=== PATIENT | female | born 1980 | race Caucasian/White ===

== ENCOUNTER → 2018-03-04 09:27 | Outpatient (CLI) | payer OTHER, MEDICAID, SELFPAY | PROVIDERS: Visit Provider Family Medicine | DX: F45.8 Other somatoform disorders (principal); R59.0 Localized enlarged lymph nodes | CPT/HCPCS: 76536 ==

== ENCOUNTER → 2018-03-12 08:19 | Outpatient (CLI) | payer OTHER, MEDICAID, SELFPAY ==
[2018-03-12 11:57] LABS: Absolute Lymphocyte Count 1.65 X10^3/ul (0.83-4.51); Absolute Neutrophil Count 3.4 X10^3/uL (2.0-7.7); Basophil# 0.03 X10^3/uL; Basophil% 0.5 % (0-1); Eosinophil# 0.11 X10^3/uL; Hematocrit 42.6 % (37-47); Hemoglobin 14.2 g/dl (12.0-15.0); Lymphocyte # 1.65 X10^3/ul (4.0); Lymphocyte % 29.3 % (19-41); Mean Corp Hgb Conc 33.3 g/gl (32-36); Mean Corpuscular Hgb 30.9 pg (27.0-32.0); Mean Corpuscular Volume 92.8 fL (81-99); Mean Platelet Vol. 10.6 fl (6.2-12.0); Monocyte% 7.1 % (0-10); Neutrophil # 3.43 X10^3/uL (2.7-7.7); Neutrophil % 60.9 % (47-70); Platelet Count 256 K/mm3 (150-450); RBC Distribution Width CV 12.3 % (11.6-14.6); RBC Distribution Width SD 41.6 fl (35.1-43.9); Red Blood Count 4.59 M/mm3 (4.2-5.4); White Blood Count 5.6 K/mm3 (4.4-11.0)
[2018-03-12 11:59] LABS: POSITIVE COUNT NO; POSITIVE DIFFERENTIAL NO; POSITIVE MORPHOLOGY NO
[2018-03-12 12:20] LABS: Vitamin B12 661 pg/mL (211-911); Vitamin D,25 Hydroxy 25.4 ng/mL (29.95-100.01)
[2018-03-12 12:31] LABS: ALB/GLOB Ratio 1.2 RATIO (0.9-2.4); AST(SGOT) 17 U/L (15-37); Alanine Aminotransfer ALT/SGPT 26 U/L (13-56); Albumin, Serum 3.8 g/dL (3.2-5.0); Alkaline Phosphatase 32 U/L (45-117); Anion Gap 11 (5-15); BUN 18 mg/dL (7-18); BUN/Creat Ratio 20.4 RATIO (10-20); Calcium,Total 8.6 mg/dL (8.5-10.1); Chloride 108 mmol/L (98-107); Creatinine, Serum 0.88 mg/dL (0.55-1.02); EST Glomerular Filtration Rate 77 mL/min (>60); Est Glom Filt Rate - Afr Amer 93 mL/min (>60); Globulin 3.3 g/dL (2.2-4.2); Glucose 81 mg/dL (74-106); Potassium 3.8 mmol/L (3.5-5.1); Protein, Total 7.1 g/dL (6.4-8.2); Sodium Level 142 mmol/L (136-145); T4 Free Direct 1.01 ng/dL (0.76-1.46); Thyroid Stim Hormone (TSH) 2.38 uIU/mL (0.358-3.74)
[2018-03-13 20:08] LABS: Endomysial Antibody IgA Negative (Negative)
[2018-03-14 08:53] LABS: ANTINUCLEAR ANTIBODIES DIRECT Negative (Negative)
[2018-03-14 08:56] LABS: Immunoglobulin A 231 mg/dL (87-352); t-Transglutaminase IgA <2 U/mL (0-3)
== END ==
LOC: LAB.FUTURE 09-15 00:55 → BFHLAB 09-02 15:31
PROVIDERS: Family Provider Family Medicine; PCP Family Medicine; Visit Provider Family Medicine
DX: I73.00 Raynaud's syndrome without gangrene (principal); G47.10 Hypersomnia, unspecified; R53.82 Chronic fatigue, unspecified; R21 Rash and other nonspecific skin eruption
CPT/HCPCS: 36415; 80053; 82306; 82533; 82607; 82784; 83516; 84439; 84443; 85025; 86038; 86225; 86235; 86255

== ENCOUNTER 2019-02-12 06:11 | Emergency (ER) | payer OTHER, MEDICAID, SELFPAY ==
[2019-02-12 06:11] VITALS: BP 121/97; PULSE 72; RESP 18; TEMP 36.6; O2SAT 96; BMI 21.9
--- NOTE | 2019-02-12 06:25 | ED.DCSUM_ITS ---
History of Present Illness Chief Complaint: Cold Sx Informant: Patient Onset: Days - 2 Narrative: Sinus congestion past 2 days. No fevers. No cough. No sore throat. No vomiting or diarrhea. Tolerating oral fluids. Uses daily [id number] nasal sprays once a day. No history of hypertension. No headaches. No visual changes. Prior similar symptoms: Yes Past Medical History - Allergies and Home Meds Allergies/Adverse Reactions: Allergies Sulfa (Sulfonamide Antibiotics) Allergy (Verified 09/02/15 06:39) Hives Primary Care Physician: Angel Engel DO [Primary Care Provider] - 3-5 Days if not improving Smoking Status: Never smoker Review of Systems All systems negative except as indicated General: Denies: Chills, Fever, Sweats Eyes: Denies: Visual changes - bilaterally, Diplopia ENT: Denies: Left ear pain, Right ear pain, Rhinorrhea, Sore throat Cardiovascular: Denies: Chest pain, Palpitations Respiratory: Denies: Dyspnea, Cough, Dyspnea on exertion Gastrointestinal: Denies: Abdominal pain, Nausea, Vomiting, Diarrhea, Melena, Hematochezia Genitourinary: Denies: Dysuria, Hematuria, Frequency Musculoskeletal: Denies: Back pain, Extremity Pain Skin: Denies: Rash, Wounds Neurological: Denies: Headache, Weakness, Numbness Physical Exam Vital Signs/Narrative: Vital Signs Temp Pulse Resp BP Pulse Ox 02/12/19 06:11 97.9 F 72 18 121/97 H 96 Inital Vital Signs reviewed: Yes General: Well nourished, Well developed, No Acute Distress Head: Normocephalic, Atraumatic, - - Tender palpation bilateral frontal sinus, left maxillary. Swollen left turbinate. No active drainage. Mild posterior pharyngeal erythema. Minimal sized tonsils. Airway patent. No exudates. Uvula midline. No trismus. Eyes: Perrl, EOMI ENT: Moist mucous membranes, No rhinorrhea Neck: Supple, Nontender Cardiovascular: Regular rate, Regular rhythm, No murmurs Respiratory: No distress, CTA bilaterally, Chest nontender Abdomen: Soft, Nontender, Nondistended, Normal bowel sounds Back: Nontender, Normal Inspection Extremities: Nontender, No edema Skin: Normal color, No rash Neurological: Alert, Oriented x3, Cranial nerves II-XII grossly intact, Normal Strength, Normal Sensation Psychological: Normal affect, Normal Mood Diagnostic/Tx/Re-eval - Medical Decision Making Patient nontoxic, vital signs stable. Centor criteria 1 out of 4. Discussed viral pharyngitis. Discussed viral sinusitis at this time. Symptomatic treatment with steroids. Written for Afrin nasal spray to use every 6 hours for 3 days. Patient to continue oral hydration. Follow-up with PCP for re evaluation. All questions were answered. ED Disposition - Plan for ED Patient: Disposition: Home or Assisted Living Diagnosis: Sinusitis, Pharyngitis Instructions: Self-Care for Sinusitis, PHARYNGITIS, Viral Prescriptions: Oxymetazoline HCl [Afrin] 1 spray NS Q6H #1 bottle Prescription Printed Referrals: Angel Engel DO [Primary Care Provider] - 3-5 Days if not improving
[2019-02-12] MEDS: dexAMETHasone 4 MG Tablet 12 MG PO (06:45)
== END 2019-02-12 07:06 | disposition home or self-care (01) ==
PROVIDERS: Emergency Provider Emergency Medicine; Family Provider Family Medicine; PCP Family Medicine
DX: J32.9 Chronic sinusitis, unspecified (principal); J02.9 Acute pharyngitis, unspecified
CPT/HCPCS: 99283

== ENCOUNTER → 2019-08-05 11:41 | Outpatient (CLI) | payer BC, MEDICAID, SELFPAY ==
[2019-08-05 15:49] LABS: Absolute Lymphocyte Count 1.69 X10^3/uL (0.83-4.51); Absolute Neutrophil Count 6.1 X10^3/uL (2.0-7.7); Basophil# 0.06 X10^3/uL; Basophil% 0.7 % (0-1); Eosinophil# 0.11 X10^3/uL; Eosinophils% 1.3 % (0-5); Hematocrit 42.7 % (37-47); Hemoglobin 14.2 g/dL (12.0-15.0); Lymphocyte # 1.69 X10^3/ul (4.0); Lymphocyte % 19.9 % (19-41); Mean Corp Hgb Conc 33.3 g/dL (32-36); Mean Corpuscular Hgb 30.3 pg (27.0-32.0); Mean Corpuscular Volume 91.2 fL (81-99); Mean Platelet Vol. 10.4 fl (6.2-12.0); Monocyte# 0.48 X10^3/uL; Monocyte% 5.7 % (0-10); NRBC Flagged by Analyzer 0 % (0-5); Neutrophil # 6.11 X10^3/uL (2.7-7.7); Platelet Count 259 K/mm3 (150-450); RBC Distribution Width CV 11.9 % (11.6-14.6); RBC Distribution Width SD 39.5 fl (35.1-43.9); Red Blood Count 4.68 M/mm3 (4.2-5.4); White Blood Count 8.5 K/mm3 (4.4-11.0)
== END ==
PROVIDERS: PCP Family Medicine; Visit Provider Family Medicine
DX: R05 Cough (principal)
CPT/HCPCS: 36415; 85025

== ENCOUNTER → 2019-08-22 09:54 | Outpatient (CLI) | payer BC, MEDICAID, SELFPAY | PROVIDERS: PCP Family Medicine; Visit Provider Family Medicine | DX: R05 Cough (principal) | CPT/HCPCS: 87070; 87205 ==

== ENCOUNTER → 2019-11-30 15:09 | Outpatient (CLI) | payer BC, MEDICAID, SELFPAY ==
[2019-12-01 07:46] LABS: SARS-COV-2 TOTAL ABS Nonreactive (Nonreactive)
== END ==
PROVIDERS: PCP Family Medicine; Visit Provider Family Medicine
DX: Z20.828 Contact with and (suspected) exposure to other viral communicable diseases (principal)
CPT/HCPCS: 86769; G2023

== ENCOUNTER 2020-09-18 21:09 | Emergency (ER) | payer OTHER, MEDICAID, SELFPAY ==
[2020-06-28 14:38] VITALS: BMI 21.9
[2020-09-18 21:09] VITALS: BP 151/90; PULSE 98; RESP 18; TEMP 36.5; O2SAT 100; BMI 21.7
--- NOTE | 2020-09-18 21:22 | CT_ITS ---
History: injury TECHNIQUE: Helically acquired images were obtained of the cervical spine without contrast. 2D reformatted images were reviewed. A radiation dose optimization technique was used for this scan. COMPARISON: None FINDINGS: # of images incl. paperwork: 401 Bony alignment is normal. Disc heights and vertebral body heights are normal. Facets are well aligned. Prevertebral and paraspinal soft tissues are normal. No bones within the cervical spine are fractured. Visualized portion of lung apices are normal. CT/Spine Cervical without Contras IMPRESSION: Normal cervical spine CT. Individualized dose optimization techniques were used for this CT. at 2244 Reported and signed by: Ayo Fairchild MD Electronically Signed: Ayo Fairchild MD at 22:42 EDT Tel , Service support ,
--- NOTE | 2020-09-18 21:22 | CT_ITS ---
HISTORY: injury Technique:CT Head or Brain W/O Contrast Injection. Sagittal and coronal 2-D reformats Number of Images including paperwork:239 Comparison: None available. 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 Paranasal sinuses are clear. The brain is normal. No acute intracranial edema or hemorrhage. No acute abnormality of orbits. Middle ear cavities and mastoid air cells are well aerated. Skull is normal. CT/Brain/Head without Contrast IMPRESSION: No acute intracranial abnormality. Prominent basal ganglia and frontal calcifications. 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 Chronic changes as above. ASPECT 10. Individualized dose optimization techniques were used for this CT. at 3013 Reported and signed by: Ayo Fairchild MD Electronically Signed: Ayo Fairchild MD at 22:35 EDT Tel , Service support ,
--- NOTE | 2020-09-18 21:22 | CT_ITS ---
HISTORY: injury TECHNIQUE: Helically acquired images were obtained of the facial bones without intravenous contrast. 2D reformats are provided. A radiation dose optimization technique was used for this scan. COMPARISON: None FINDINGS: # of images incl. paperwork: 406 Paranasal sinuses are clear. Mastoid air cells are free of disease. No fractures are present. Orbits and globes are normal. Visualized portions of the upper cervical spine are normal. CT/Sinus/Facial Bone IMPRESSION: Normal. Individualized dose optimization techniques were used for this CT. at 2246 Reported and signed by: Ayo Fairchild MD Electronically Signed: Ayo Fairchild MD at 22:44 EDT Tel , Service support ,
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
--- NOTE | 2020-09-18 23:13 | DCINST.ED_ITS ---
ED Disposition - Plan for ED Patient: Instructions: ED Head Injury (Adult) Referrals: Angel Engel [facility] [Primary Care Provider[facility] [[facility] OF PHYSICI[facility]] - Romaine Barnett MD [STAFF PHYSICIAN] -
--- NOTE | 2020-09-18 23:13 | ED.DEP ---
ED Disposition - Plan for ED Patient: Instructions: ED Head Injury (Adult) Ref[facility]: [facility] Engel [facility] [Primary Care Provider[facility] [place] [GROUP OF PHYSICIANS] - Romaine Barnett MD [STAFF PHYSICIAN] -
[2020-09-18] MEDS: Ibuprofen 600 MG Tablet PO (23:27)
== END 2020-09-18 23:30 | disposition home or self-care (01) ==
LOC: ED 21:50
PROVIDERS: Emergency Provider Emergency Medicine; PCP Family Medicine
DX: S09.90XA Unspecified injury of head, initial encounter (principal); W22.09XA Striking against other stationary object, initial encounter; Y93.89 Activity, other specified; Y92.89 Other specified places as the place of occurrence of the external cause; Y99.0 Civilian activity done for income or pay
CPT/HCPCS: 70450; 70486; 72125; 99283

== ENCOUNTER → 2020-10-06 17:47 | Outpatient (CLI) | payer MEDICAID, SELFPAY ==
[2020-09-22 08:14] VITALS: BMI 23.3
--- NOTE | 2020-10-06 17:49 | MRI_ITS ---
STUDY: MRI BRAIN WITH AND WITHOUT CONTRAST REASON FOR EXAM: Female, 40 years old. Migraine Headache; Cerebral Calcifications f/u CT TECHNIQUE: Standardized multiplanar fat and water weighted pulse sequences were obtained. IV 13cc dotarem was administered for the contrast portion of the examination. COMPARISON: CT of the brain 09/18/2020 FINDINGS: Normal size of the ventricles and extra-axial spaces for the patient''s age. Normal white matter tracts of the supratentorial brain. Bilateral basal ganglia calcification of indeterminate significance.. Normal thalami. There is no extra-axial fluid accumulation. Normal flow voids within the major intracranial circulation suggesting patency by spin echo criteria. Normal venous enhancement. There is no enhancing intra-axial or extra-axial abnormality. Normal sella turcica, pituitary gland, infundibular stalk, optic chiasm and hypothalamus. Normal tectal plate and pineal gland. Normal midbrain, edsiree and medulla. Normal cerebellum. Normal basal cisterns. Normal bilateral temporal bones. Normal bilateral internal auditory canals. No demonstrated orbital abnormality, within the constraints of a routine brain study. Normal visualized paranasal sinuses. Normal calvarium and skull base. Normal visualized soft tissue structures. Normal visualized upper cervical spine Previously noted frontal lobe parenchymal calcifications noted on recent CAT scan are not visualized on the MRI. MRI/Brain W/WO Contrast IMPRESSION: Bilateral basal ganglia calcifications are indeterminate significance otherwise normal unenhanced and enhanced MRI of the brain. Electronically Signed: Malcom Lan MD at 20:26 EDT , Service support ,
== END ==
PROVIDERS: PCP Family Medicine; Referring Provider Psychiatry & Neurology Neurology; Visit Provider Psychiatry & Neurology Neurology
DX: G43.909 Migraine, unspecified, not intractable, without status migrainosus (principal); G93.89 Other specified disorders of brain
CPT/HCPCS: 70553; A9575

== ENCOUNTER → 2020-10-12 08:08 | Outpatient (CLI) | payer MEDICAID, SELFPAY ==
[2020-09-22 08:14] VITALS: BMI 23.3
[2020-10-12 08:47] LABS: Hematocrit 42.6 % (37-47); Hemoglobin 14.5 g/dL (12.0-15.0); Mean Corpuscular Volume 91.2 fL (81-99); Mean Platelet Vol. 9.4 fl (6.2-12.0); Platelet Count 289 K/mm3 (150-450); RBC Distribution Width CV 11.9 % (11.6-14.6); RBC Distribution Width SD 39.9 fl (35.1-43.9); Red Blood Count 4.67 M/mm3 (4.2-5.4); White Blood Count 5.5 K/mm3 (4.4-11.0)
[2020-10-12 09:05] LABS: PTHIN 79.3 pg/mL (18.4-80.1)
[2020-10-12 09:09] LABS: Vitamin B12 542 pg/mL (211-911)
[2020-10-12 09:22] LABS: ALB/GLOB Ratio 0.9 RATIO (0.9-2.4); AST(SGOT) 12 U/L (15-37); Alanine Aminotransfer ALT/SGPT 20 U/L (13-56); Albumin, Serum 3.4 g/dL (3.2-5.0); Alkaline Phosphatase 35 U/L (45-117); Anion Gap 4 (5-15); BUN 12 mg/dL (7-18); BUN/Creat Ratio 12.6 RATIO (10-20); Calcium,Total 8.3 mg/dL (8.5-10.1); Chloride 111 mmol/L (98-107); Creatinine, Serum 0.95 mg/dL (0.55-1.02); EST Glomerular Filtration Rate 69 mL/min (>60); Est Glom Filt Rate - Afr Amer 84 mL/min (>60); Globulin 3.6 g/dL (2.2-4.2); Glucose 98 mg/dL (74-106); Phosphorus 2.9 mg/dL (2.5-4.9); Potassium 3.6 mmol/L (3.5-5.1); Sodium Level 140 mmol/L (136-145); Thyroid Stim Hormone (TSH) 2.65 uIU/mL (0.358-3.74)
[2020-10-14 15:50] LABS: Vitamin D 1,25-Dihydroxy 43.4 pg/mL (19.9-79.3)
[2020-10-15 19:50] LABS: Arsenic 7245 5 ug/L (2-23); Lead, Blood < 1 ug/dL (0-4); Mercury, Blood 85324 < 1.0 ug/L (0.0-14.9)
== END ==
PROVIDERS: PCP Family Medicine; Referring Provider Psychiatry & Neurology Neurology; Visit Provider Psychiatry & Neurology Neurology
DX: E83.50 Unspecified disorder of calcium metabolism (principal); F32.9 Major depressive disorder, single episode, unspecified; R51.9 Headache, unspecified; R41.3 Other amnesia
CPT/HCPCS: 36415; 80053; 82175; 82607; 82652; 82746; 83655; 83735; 83825; 83970; 84100; 84443; 85027

== ENCOUNTER → 2020-12-13 20:18 | Outpatient (CLI) | payer OTHER, MEDICAID, SELFPAY ==
[2020-10-27 13:50] VITALS: BMI 23.3
== END ==
PROVIDERS: PCP Family Medicine; Referring Provider Psychiatry & Neurology Neurology; Visit Provider Psychiatry & Neurology Neurology
DX: G47.10 Hypersomnia, unspecified (principal)
CPT/HCPCS: 95810

== ENCOUNTER → 2021-03-16 14:04 | Outpatient (CLI) | payer OTHER, MEDICAID, SELFPAY ==
--- NOTE | 2021-03-16 14:10 | RAD_ITS ---
STUDY: X-RAY - RIGHT ANKLE REASON FOR EXAM: Female, 40 years old. ANKLE PAIN TECHNIQUE: 3 view(s) of the ankle. COMPARISON: None. FINDINGS: Normal visualized distal tibia and fibula. Normal medial and lateral malleoli. Normal tibiotalar articulation and ankle mortise. Normal visualized talus and calcaneus. The visualized subtalar, talonavicular, calcaneocuboid and tarsal articulations are normal. The soft tissue structures are unremarkable. RAD/Ankle min 3 Views IMPRESSION: Normal x-ray examination of the ankle. Electronically Signed: Carlo Santillan MD at 12:11 EDT , Service support ,
== END ==
PROVIDERS: PCP Family Medicine; Referring Provider Family Medicine; Visit Provider Family Medicine
DX: M25.571 Pain in right ankle and joints of right foot (principal)
CPT/HCPCS: 73610

== ENCOUNTER → 2021-03-23 | Outpatient (CLI) | payer OTHER, MEDICAID, SELFPAY | END | disposition home or self-care (01) | LOC: LABSPEC 15:12 | PROVIDERS: PCP Family Medicine; Visit Provider Otolaryngology | DX: Z20.822 Contact with and (suspected) exposure to COVID-19 (principal) | CPT/HCPCS: 87635; U0005; U0003 ==

== ENCOUNTER → 2021-03-27 | Outpatient (CLI) | payer OTHER, MEDICAID, SELFPAY ==
--- NOTE | 2021-03-27 09:10 | NASAL_PTH ---
PATIENT: LILY MENA [facility] U#:[id number] AGE/SX: 40/F ROOM: RE03/27/[address]: Dr. Trey Abarca MD : 1980 BED: DIS: 03/27/2021 SPEC #: [id number] RECD: 03/27/21 14:57 STATUS: MARIA EUGENIA LOBO #: [id number] THERON: 03/27/21 09:[address]: Trey Abarca DEPT: SURGICAL PATHOLOGY RECD BY: Tri Salas ENTERED: 03/28/21 08:44 SP TYPE: NASAL SPEC OTHR DR: Dr. Angel Engel, [facility] Tissues: Nasal turbinate, NOS Procedures: Decalcification bone/plaque Surgery Specimen Level III HEADER OPERATION: Septoplasty, submucosal resection of inferior turbinates PRE-OP DIAGNOSIS: Nasal congestion, hypertrophy of nasal turbinates, deviated nasal septum TISSUE SUBMITTED: Septum, right turbinate contents MICROSCOPIC DIAGNOSIS Septum, right turbinate contents: Fragments of cartilage and bone, clinically deviated nasal septum. SJ:mumtaz 03/31/2021 MICROSCOPIC DESCRIPTION Slides are reviewed. GROSS DESCRIPTION Received is one container labeled with the patient's name and not further designated. The specimen consists of multiple irregular fragments of light parra soft tissue and bone that in aggregate measure 3.5 x 3 x 0.2 cm. The specimen is totally submitted in two cassettes after decalcification. / AM:mumtaz 03/28/21 TC:5 CPT: 50163, 52338
== END | disposition home or self-care (01) ==
LOC: LABSPEC 16:20
PROVIDERS: PCP Family Medicine; Referring Provider Otolaryngology; Visit Provider Otolaryngology
DX: J34.2 Deviated nasal septum (principal); J34.3 Hypertrophy of nasal turbinates
CPT/HCPCS: 88304; 88311

== ENCOUNTER 2021-07-14 10:21 | Outpatient (CLI) | payer OTHER, MEDICAID, SELFPAY ==
--- NOTE | 2021-07-14 10:23 | MRI_ITS ---
STUDY: MRI BRAIN WITH AND WITHOUT CONTRAST REASON FOR EXAM: Female, 40 years old. Intracranial calcification -- Needs to be scheduled 2 weeks before F/U apt. TECHNIQUE: Standardized multiplanar fat and water weighted pulse sequences were obtained. IV 14ml Dotarem was administered for the contrast portion of the examination. COMPARISON: 10/06/2020 FINDINGS: Normal size of the ventricles and extra-axial spaces for the patient''s age. Normal white matter tracts of the supratentorial brain. There is no evidence for recent intracranial ischemia or other cause of cytotoxic edema on diffusion weighted imaging (DWI). Susceptibility artifact within the globus pallidus bilaterally corresponding to the calcification seen on T2 CT worrisome for metabolic disease. Normal bilateral basal ganglia. Normal thalami. There is no extra-axial fluid accumulation. Normal flow voids within the major intracranial circulation suggesting patency by spin echo criteria. Normal venous enhancement. There is no enhancing intra-axial or extra-axial abnormality. Normal sella turcica, pituitary gland, infundibular stalk, optic chiasm and hypothalamus. Normal tectal plate and pineal gland. Normal midbrain, desiree and medulla. Normal cerebellum. Normal basal cisterns. Normal bilateral temporal bones. Normal bilateral internal auditory canals. No demonstrated orbital abnormality, within the constraints of a routine brain study. Normal visualized paranasal sinuses. Normal calvarium and skull base. Normal visualized soft tissue structures. Normal visualized upper cervical spine. MRI/Brain W/WO Contrast IMPRESSION: No change in calcifications of the globus pallidus bilaterally likely from metabolic disease. Electronically Signed: Jose Sosa MD at 11:58 EST Tel , Service support ,
== END 2021-07-14 23:59 | disposition short-term general hospital (02) ==
LOC: MRI 10:23
PROVIDERS: PCP Family Medicine; Referring Provider Psychiatry & Neurology Neurology; Visit Provider Psychiatry & Neurology Neurology
DX: G93.89 Other specified disorders of brain (principal)
CPT/HCPCS: 70553; A9575

== ENCOUNTER 2021-09-05 11:30 | Outpatient (RCR) | payer OTHER, MEDICAID, SELFPAY ==
--- NOTE | 2021-08-24 11:51 | HP.PTEVAL ---
Patient's Visit Information LILY MENA is a 40 year old F referred to Physical Therapy by Dr. Romaine Barnett MD with a diagnosis of Neck pain with L UE radiculopathy. Date of Evaluation: 08/24/21 Physical Therapist: Carlo Sheppard, PT, ATC - Visit Plan Frequency: 2x /Week Duration: 2-4 Weeks Plan: Assess benefit of C-Tx. Incorporate DTR, PROM/mobs to C/S, postural edu, and HEP - Subjective Pt reports she has a chronic Hx of neck pain, but injured her neck 1 while at work. 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 Pt notes her neck pain and L UE radiculopathy are both intermittent in nature and occur depending on the position of her neck and L UE. Pt reports she now feels weak in her L UE due to the numbness in her L UE. Pt notes she has a hard kristi with lifting and carrying items now with her L UE. Pt notes her L UE gives out on her occasionally. Pt is R hand dominant. Pt reports she is still working at this time but has not had to restrain any more kids, so she isn't limited at this time. Pt reports occasional sleep difficulty secondary to pain. Pt does have pain with overhead lifting of her L UE. 3/10 pain at rest, 8/10 pain at worst. - Pain Neck pain and L UE pain Pain Intensity (Out of 10): 3 Pain Intensity Range: 8 - Objective Neuro: B UE sensatrion is WNL to light touch. B bicepital reflex= 1/3. Palpation: Pt is very sore along the distribution of the supraspinatus muscle. No obvious deformity at this time. ROM: R shoulder flex= 165, abd= 165. L shoulder flex= 145, abd= 135. C/S is minimally limited with retraction, and severely limited with flexion. All other C/S ROM is WNL. MMT: L shoulder flex and abd= 4-/5 and are painful. All other UE's 5/5 throughout. Repeated movements: RPIS 10x3 peripheralized sx's into L hand. RRIS peripheralized sx's into L hand as well. Special tests: Negative L shoulder tests. Pos apley compression and distraction tests of the neck - Balance/Special Test Scores Oswestry Neck Score: 20 - Goals Goal 1:: Decrease cervical spine pain x 50% to aid with sleep Goal Time Frame: 4-6 Weeks Goal 2:: Decrease the frequency and intensity of L UE radiculopathy x 25-50% to aid with work requirements. Goal Time Frame: 4-6 Weeks Goal 3:: Increase L UE strength x 1 grade to aid with IADL's Goal Time Frame: 4-6 Weeks Goal 4:: I with HEP Goal Time Frame: 4-6 Weeks - Rehabilitation Potential Physical Therapy Diagnosis: Pt has neck pain, L UE radiculopathy, and L UE weakness secondary to a cervical spine disc derrangement Rehabilitation Potential: Good - Anticipated Interventions Patient/Client Instruction: Educate patient on: Condition, Plan of Care For the Purpose of:: To improve self management Therapeutic Exercise to Include: Body mechanics, Postural training, Flexibilty training, Passive ROM, Active ROM, Rachel Exercises For the Purpose of:: To decrease pain, To increase ROM, To improve muscle performance and motor function Manual Therapy Techniques to Include: Soft tissue mobilization For the Purpose of:: To decrease pain Thank you for the opportunity to evaluate your patient. For Medicare and Medicare HMO plans, please review the plan of care and approve it. It will need to be FAXED BACK to us at [phone] for Medicare purposes. For Medicare only, by signing this I certify the plan of care. Please let me know if there are questions or concerns regarding this plan of care. Physician Signature: Date:
--- NOTE | 2021-12-14 15:24 | HP.PT.NRP ---
LILY MENA was seen in my office for initial evaluation on 08/24/21. The following Plan of Care was established for this patient: Initial Frequency: 2x /Week Initial Duration: 2-4 Weeks Patient/Client Instruction: Educate patient on: Condition, Plan of Care For the Purpose of:: To improve self management Therapeutic Exercise to Include: Body mechanics, Postural training, Flexibilty training, Passive ROM, Active ROM, Rachel Exercises For the Purpose of:: To decrease pain, To increase ROM, To improve muscle performance and motor function Manual Therapy Techniques to Include: Soft tissue mobilization For the Purpose of:: To decrease pain This patient was last seen in our office . Pertinent comments regarding their Physical therapy will appear below: Pt was treated for 3 PT visits for neck pain through the date of 09/05/21. Pt has not returned through todays date and is discontinued at this time At this point I will be discontinuing this patient from physical therapy. I would be happy to see this patient again in the future if found appropriate by the physician. Thank you! Carlo Sheppard, PT, ATC Balance/Gait/Functional tests - Balance/Special Test Scores Oswestry Neck Score: 20
== END 2021-09-05 19:00 | disposition home or self-care (01) ==
LOC: PT 11:30
PROVIDERS: PCP Family Medicine; Referring Provider Psychiatry & Neurology Neurology; Visit Provider Psychiatry & Neurology Neurology
DX: M54.12 Radiculopathy, cervical region (principal); M54.2 Cervicalgia
CPT/HCPCS: 97012; 97161

== ENCOUNTER 2023-03-31 18:48 | Emergency (ER) | payer OTHER, SELFPAY ==
[2023-03-31 18:48] VITALS: BP 145/105; PULSE 86; RESP 16; TEMP 36.6; O2SAT 96; BMI 26.2
--- NOTE | 2023-03-31 19:40 | RAD_ITS ---
INDICATION: Trauma EXAMINATION/TECHNIQUE: X-RAY - RIGHT XR Shoulder Min 2 Views 2 VIEWS COMPARISON: None. FINDINGS: AC joint intact. Mild acromial downsloping. Glenohumeral joint space is preserved. No fracture. No dislocation. Visualized portions of the right chest with no acute abnormality. RAD/Shoulder min 2 Views IMPRESSION: No acute osseous abnormality. Electronically Signed: Spenser Carmichael MD at 19:56 EDT ,
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
[2023-03-31 21:39] VITALS: BP 147/104; PULSE 78; RESP 18
== END 2023-03-31 21:39 | disposition home or self-care (01) ==
PROVIDERS: Emergency Provider Emergency Medicine; PCP Family Medicine; Visit Provider Emergency Medicine
DX: S40.011A Contusion of right shoulder, initial encounter (principal); Y04.8XXA Assault by other bodily force, initial encounter
CPT/HCPCS: 73030; 99282

== ENCOUNTER → 2023-06-12 | Outpatient (CLI) | payer OTHER, MEDICAID, SELFPAY ==
--- NOTE | 2023-06-12 07:39 | MRI_ITS ---
EXAM: MR HEAD WITHOUT AND WITH INTRAVENOUS CONTRAST CLINICAL INDICATION: Reassess intracranial calcifications TECHNIQUE: Multiplanar and multisequence MR images of the brain were obtained without and with intravenous contrast. CONTRAST: 13 mL of IV Clariscan. COMPARISON: MRI brain with and without contrast 07/14/2021. CT head without contrast 09/18/2021. FINDINGS: BRAIN AND EXTRA-AXIAL SPACES: Calcifications in the bilateral medial globus pallidus are visible on the GRE sequence. The subcortical white matter calcifications in the frontal lobes are not visible on MRI in all pulse sequences. Following IV contrast administration, there are no abnormal enhancing lesions intra-axially and extra-axially. No intra- or extra-axial hemorrhage. No evidence of acute infarct. No intracranial mass or mass effect. There is preservation of the kang/white matter interface. Posterior fossa structures are unremarkable. Ventricles are appropriate for age. No hydrocephalus. Basal cisterns are patent. SELLA: Unremarkable. Normal sella turcica, pituitary gland, infundibular stalk, optic chiasm and hypothalamus. AUDITORY SYSTEM: Unremarkable. The internal auditory canals are patent. BONES/JOINTS: Unremarkable. No discrete lytic or blastic abnormalities. SINUSES: Unremarkable as visualized. Clear. MASTOID AIR CELLS: Unremarkable as visualized. Clear. ORBITS: Unremarkable as visualized. Both globes, extraocular muscles, optic nerves and retrobulbar fat appear unremarkable. VASCULATURE: Unremarkable as visualized. Normal flow voids in the major intracranial circulation. MRI/Brain W/WO Contrast IMPRESSION: Bilateral benign calcifications in the medial globus pallidus are unchanged. These are visible on CT and MRI GRE sequence. The few subcortical white matter calcifications in the right frontal lobe and one in the left frontal lobe remain invisible on MRI in all pulse sequences. The subcortical white matter calcifications in the frontal lobes may be postinflammatory such as remote exposure to CMV or toxoplasmosis. They are of doubtful clinical significance. Otherwise negative MRI brain with and without contrast and unchanged since 07/14/2021. Electronically Signed: Florian Castillo MD at 13:37 EST ,
== END | disposition home or self-care (01) ==
PROVIDERS: PCP Family Medicine; Referring Provider Psychiatry & Neurology Neurology; Visit Provider Psychiatry & Neurology Neurology
DX: G93.89 Other specified disorders of brain (principal); G43.009 Migraine without aura, not intractable, without status migrainosus; R41.3 Other amnesia
CPT/HCPCS: 70553; A9575

== ENCOUNTER 2024-03-12 00:22 | Emergency (ER) | payer OTHER, MEDICAID, SELFPAY ==
[2024-03-12 00:23] VITALS: BP 127/88; PULSE 94; RESP 18; TEMP 36.6; O2SAT 98; BMI 26.8
[2024-03-12 00:24] VITALS: BP 127/88; PULSE 84; RESP 14; TEMP 37.1; O2SAT 95
--- NOTE | 2024-03-12 00:36 | EDS_ITS ---
HPI HPI - URI History of Present Illness Chief Complaint: Cough Informant: patient Onset/Context/Timing Onset: Weeks Context: Gradual Onset Timing: Continuous Current Severity: Mild Maximum Severity: Mild Associated Symptoms Associated Symptoms: Positive for Nonproductive cough; Negative for Chest Pain Narrative Narrative: 43-year-old female history of COVID with a positive home test 3 weeks ago. She is also currently about 8 weeks . Has a pending ultrasound. States she just now had a chronic cough since she was diagnosed with COVID. Denies shortness of breath. No hemoptysis. Prior similar symptoms: Yes Recent Illness/Hospitalization: No ROS ROS ED ROS Narrative Nonproductive cough. Constitutional Constitutional ED: Denies chills or fever(s) Eyes Eyes: Denies blurry vision ENT ENT ED: Denies ear pain Cardiovascular Cardiovascular: Denies chest pain Respiratory/Chest Respiratory/Chest: Reports cough; Denies dyspnea Gastrointestinal Gastrointestinal: Denies abdominal pain Genitourinary Genitourinary ED: Denies dysuria or hematuria Musculoskeletal Musculoskeletal: Denies arthralgias Integumentary Denies abscess Neurologic Neurologic: Denies headache(s) Psychiatric Psychiatric: Denies anxiety Endocrine Endocrinology: Denies cold intolerance Hematologic/Lymphatic Hematologic/Lymphatic: Denies easy bleeding Allergic/Immunologic Allergic/Immunologic ED: Denies mouth swelling PFSH PFSH Medical History Migraine headache ADHD Home Medications ?Medication ?Instructions ?Recorded ?Last Taken ?Type vitamin with calcium 1 tab PO DAILY 03/12/24 Unknown History no.72-iron 27 mg-folic acid 1 mg tablet ( Plus (calcium carbonate)) Allergy/AdvReac Type Severity Reaction Status Date / Time Sulfa (Sulfonamide Allergy Hives Verified 03/12/24 00:23 Antibiotics) Family History Mother Migraine Surgical History History of sinus surgery Social History Smoking Status: Never smoker Electronic Cigarette Use: not used second hand exposure: No alcohol intake: current alcohol intake frequency: 0-2 drinks per day substance use type: former substance user what type of physical activity do you participate in: none erickson/confucianism: AGNOSTIC seatbelt use: always EXAM Physical Exam Narrative Exam Narrative: Well-appearing 43-year-old female. Vital signs are stable afebrile. Pulse ox 90% on room air no hypoxia. H EENT exam unremarkable. Mytrex membranes. Neck nontender. No JVD. No lymphadenopathy. Lungs clear to auscultation bilaterally. No rales rhonchi or wheezing. Dry cough. Equal symmetrical. Heart regular rate and rhythm rate about 80 no murmur. Chest wall ribs nontender. Abdomen soft nontender. Back nontender. Moving all 4 extremities. Nontender no edema. No cords. She is awake and alert. No focal motor deficits. Very benign exam. Dry cough. Const Vital Signs: 03/12/24 00:23 03/12/24 00:24 03/12/24 00:25 Temperature 97.8 F 98.8 F Temperature Source Temporal Temporal Pulse Rate 94 84 Respiratory Rate 18 14 Respiratory Effort Short of Breath Respiratory Depth Normal Respiratory Pattern Normal Blood Pressure 127/88 H 127/88 H Blood Pressure Mean 101 101 Pulse Ox 98 95 Oxygen Delivery Method Room Air Room Air Room Air 03/12/24 01:24 Temperature 97.3 F L Temperature Source Pulse Rate 75 Respiratory Rate 18 Respiratory Effort Respiratory Depth Respiratory Pattern Blood Pressure 139/76 H Blood Pressure Mean 97 Pulse Ox 97 Oxygen Delivery Method Positive well nourished and well developed; Negative for cachectic or contractures General Appearance ED: well developed and NAD; Negative for cachectic, contractures, cyanotic, diaphoretic or pallor Nutritional Appearance: Negative for cachectic HEENT Reports moist mucous membranes normocephalic and atraumatic Face and Sinus: Negative for sinus tenderness Throat: posterior oropharynx normal Eyes PERRL and EOMs intact bilaterally General Eye ED: Negative for pale conjunctiva or scleral icterus Neck no lymphadenopathy, supple, no meningeal signs and no JVD General: Negative for anterior neck swelling or lymphadenopathy Resp normal respiratory effort and clear to auscultation bilaterally Resp Narrative: Chronic cough. Effort and Inspection: Negative for retractions Auscultation: Negative for rales, rhonchi, wheezes or diminished lung sounds Cardio S1 normal heart sound, S2 normal heart sound and no murmurs Rate: regular rate Rhythm: regular rhythm GI non-tender, non-distended and no masses Inspection: Negative for abdominal distention Auscultation: normoactive bowel sounds Palpation: soft; Negative for tender, guarding or mass Back/Spine no CVA tenderness and normal ROM General Back: Negative for CVA tenderness Cervical Spine: Negative for cervical spine tenderness Thoracic Spine / Upper Back: Negative for thoracic spinal tenderness Lumbar Spine / Lower Back: Negative for lumbar spinal tenderness Sacrum: Negative for tenderness Extremity normal to inspection and full ROM General Extremety ED: Negative for cyanosis, tenderness or other findings General Extremity: Negative for cyanosis or other findings Neuro oriented x3 and CN's II-XII intact bilaterally Sensorium / Orientation: alert, oriented to person, oriented to place and oriented to time; Negative for orientation impaired or lethargic Motor Exam: strength 5/5 throughout and general weakness; Negative for strength abnormal Psych mental status grossly normal Appearance: Negative for other Attitude: No agitated Mood & Affect: Negative for depressed, anxious or tearful Skin General Skin Exam: Negative for jaundice or pallor Lesions: no lesions Rashes: no rashes Trauma: Negative for abrasion, laceration or puncture MDM MDM MDM Narrative Medical decision making narrative: 43-year-old female chronic cough after being COVID-positive 3 weeks ago. Benign exam. Chest x-ray being obtained. Due to her being 8 weeks she will be show did. Her vital signs are stable. She is in no distress. I do not believe she needs any other testing. Repeat exam patient doing well at 1:20 AM. We discussed her chest x-ray results. Discussed patients often develop a chronic cough after COVID. She will follow-up as needed. She is already tried Benadryl and [id number] cough syrups without any significant relief. Given that she is 8 weeks I do not feel that Tylenol with codeine is a good option. History & Record Review Discussion w/independent historian: Patient Additional record(s) reviewed:: Prior inpatient record, Prior outpatient record, Prior ED visit and Prior labs Radiography Chest X-Ray - ED: 2 View, Read by ED Physician, Normal, Heart, Bony Structures and No Acute Disease Diagnostic Testing: Chest x-ray, 2 views, AP and lateral, interpreted by myself shows no acute abnormality. Normal cardiac silhouette. Normal lung cancino. No infiltrate. No effusion. Discharge Plan Triage Chief Complaint: Cough ED Provider: Yohan Sanford Dx/Rx/DC Orders Clinical Impression: Chronic cough, History of COVID-19 Instructions: ED Cough Chronic Uncertain Cause Adult Prescriptions: No Action Plus (calcium carb) 27 mg iron- 1 mg tablet 1 tab PO DAILY Primary Care Provider: Angel Engel Referrals: Angel Engel, [Primary Care Provider] - Keep [place] appointment Activity Restrictions/Additional Instructions: Follow-up with your doctor and/or OB as needed. Patient's occasionally develop a chronic cough after having COVID. This could last several more weeks to another month and a half. Generally it typically improves and resolves. Your chest x-ray was normal. Print Language: French Disposition Disposition: Home, Self Care
--- NOTE | 2024-03-12 00:36 | RAD_ITS ---
INDICATION: cough. SHIELD Abd 8 wks EXAMINATION/TECHNIQUE: X-RAY - XR Chest 2 Views COMPARISON: No relevant prior comparison study available FINDINGS: LINES/DEVICES: None. LUNGS: No consolidation, edema or effusion. No pneumothorax. MEDIASTINUM AND CARDIOVASCULAR STRUCTURES: Cardiac silhouette not enlarged. Central airways and mediastinal contour are unremarkable. BONES AND SOFT TISSUES: Unremarkable. RAD/Chest PA and Lateral IMPRESSION: No radiographic evidence of acute cardiopulmonary disease. Electronically Signed: Christy Logan MD at 1:58 EDT ,
[2024-03-12 01:24] VITALS: BP 139/76; PULSE 75; RESP 18; TEMP 36.3; O2SAT 97
== END 2024-03-12 01:40 | disposition home or self-care (01) ==
PROVIDERS: Emergency Provider Emergency Medicine; PCP Family Medicine; Visit Provider Emergency Medicine
DX: O99.891 Other specified diseases and conditions complicating pregnancy (principal); O09.511 Supervision of elderly primigravida, first trimester; R05.3 Chronic cough; Z3A.08 8 weeks gestation of pregnancy; Z86.16 Personal history of COVID-19
CPT/HCPCS: 71046; 99282